=== PATIENT | female | born 1940 | race Caucasian/White ===

== ENCOUNTER 2020-11-15 11:08 | Observation (INO) | payer MEDICARE, OTHER ==
[~2020-11-15] VITALS: Ht 160 cm; Wt 77.1 kg
[~2020-11-15 11:08] MED LIST: OMNICEF 300 MG300 MG PO; PYRIDIUM200 MG PO
[2020-11-15 11:54] LABS: RED BLOOD COUNT 4.83 M/UL (4.00-5.10); WHITE BLOOD COUNT 7.4 K/UL (4.5-11.0)
[2020-11-15 12:11] LABS: BUN/CREATININE RATIO 16 (0-10)
[2020-11-15] MEDS ORDERED: BETAPACE 80MG T80 MG PO (17:08)
[2020-11-15] MEDS ORDERED: AMLODIPINE BESYL5 MG PO (17:09)
[2020-11-15] MEDS ORDERED: ATORVASTATIN CA20 MG PO (17:09)
[2020-11-15] MEDS ORDERED: CLOPIDOGREL75 MG PO (17:09)
[2020-11-15] MEDS ORDERED: ASPIRIN EC81 MG PO (17:10)
[2020-11-15] MEDS ORDERED: COZAAR 50MG TAB50 MG PO (17:10)
[2020-11-15] MEDS ORDERED: OMEPRAZOLE20 MG PO (17:34)
[2020-11-16 02:56] LABS: HEMOGLOBIN 13.3 gm/dl (12.3-15.3); RED BLOOD COUNT 4.6 M/UL (4.00-5.10); WHITE BLOOD COUNT 6.3 K/UL (4.5-11.0)
[2020-11-16] MEDS ORDERED: MECLIZINE HCL25 MG PO (11:18)
[2020-11-16] MEDS ORDERED: ELIQUIS 5 MG TAB5 MG PO (11:28)
== END 2020-11-16 18:18 | disposition home or self-care (01) ==
LOC: ER1 11:08 → CDU 13:18 → M/S 13:18 → EDBD 11-16 18:18 → M/S 11-16 18:18
PROVIDERS: Emergency Medicine; Physician Assistant; ADMIT Internal Medicine
DX: R42 Dizziness and giddiness (principal); I25.10 Atherosclerotic heart disease of native coronary artery without angina pectoris; I48.0 Paroxysmal atrial fibrillation; I44.7 Left bundle-branch block, unspecified; I10 Essential (primary) hypertension; E78.5 Hyperlipidemia, unspecified; F03.90 Unspecified dementia, unspecified severity, without behavioral disturbance, psychotic disturbance, mood disturbance, and anxiety; Z95.5 Presence of coronary angioplasty implant and graft; Z82.49 Family history of ischemic heart disease and other diseases of the circulatory system; Z83.3 Family history of diabetes mellitus; Z20.822 Contact with and (suspected) exposure to COVID-19; Z88.0 Allergy status to penicillin; Z88.2 Allergy status to sulfonamides; Z91.013 Allergy to seafood; Z79.82 Long term (current) use of aspirin; Z79.02 Long term (current) use of antithrombotics/antiplatelets
CPT/HCPCS: ECHO; 36415; 70450; 70551; 71045; 80048; 80053; 82550; 82553; 83874; 84484; 85025; 85610; 85730; 93005; 93306; 93880; 97161; 99285; G0378; J7030; U0002

== ENCOUNTER 2020-12-11 20:42 | Inpatient (IN) | payer MEDICARE, OTHER ==
[~2020-12-11] VITALS: Ht 160 cm; Wt 81.2 kg
[~2020-12-11 20:42] MED LIST changes: +AMLODIPINE BESYL5 MG PO; +ASPIRIN EC81 MG PO; +ATORVASTATIN CA20 MG PO; +BETAPACE 80MG T80 MG PO; +CLOPIDOGREL75 MG PO; +COZAAR 50MG TAB50 MG PO; +ELIQUIS 5 MG TAB5 MG PO; +MECLIZINE HCL25 MG PO; +OMEPRAZOLE20 MG PO
[2020-12-11 21:06] LABS: HEMOGLOBIN 12.7 gm/dl (12.3-15.3); RED BLOOD COUNT 4.41 M/UL (4.00-5.10); WHITE BLOOD COUNT 7.6 K/UL (4.5-11.0)
[2020-12-11 21:40] LABS: BUN/CREATININE RATIO 18 (0-10)
--- NOTE | 2020-12-13 12:46 | NUR ---
CALLED MRI LEFT MESSAGE THAT PATIENT IS NOT ON TELEMETRY AND IS READY FOR MRI.
[2020-12-14 03:27] LABS: HEMOGLOBIN 11.9 gm/dl (12.3-15.3); RED BLOOD COUNT 4.18 M/UL (4.00-5.10); WHITE BLOOD COUNT 8.8 K/UL (4.5-11.0)
--- NOTE | 2020-12-15 13:48 | NUR ---
1304- patient left for medical lab technologist at this time
[2020-12-16 03:41] LABS: HEMOGLOBIN 12.2 gm/dl (12.3-15.3); RED BLOOD COUNT 4.27 M/UL (4.00-5.10)
[2020-12-16 04:15] LABS: BUN/CREATININE RATIO 22 (0-10)
--- NOTE | 2020-12-16 12:05 | NUR ---
SPOKE WITH CHERRI MONK REALTED TO PATIENT REFUSING CT SCAN OF ABD. PATIENT STATES ALLERGIC TO IODINE. ORDER TO CANCEL ORDER AND FOLLOW UP AT CLINIC.
--- NOTE | 2020-12-16 14:52 | NUR ---
1330- HOSPITALIST NOTIFIED OF STEVENTENT REFUSES FOR CT SCAN. NO NEW ORDERS.
[2020-12-18 05:09] LABS: HEMOGLOBIN 11.9 gm/dl (12.3-15.3); RED BLOOD COUNT 4.17 M/UL (4.00-5.10); WHITE BLOOD COUNT 6.8 K/UL (4.5-11.0)
[2020-12-18 05:31] LABS: BUN/CREATININE RATIO 28 (0-10)
[2020-12-20] MEDS ORDERED: POLYETHYLENE GL17 GM PO (10:38)
[2020-12-20] MEDS ORDERED: HYDROCODON-ACE1 EAC4 PO (10:38)
[2020-12-20] MEDS ORDERED: DOCUSATE SODIU100 MG PO (10:38)
[2020-12-20] MEDS ORDERED: ZOFRAN4 MG PO (11:58)
== END 2020-12-20 14:20 | disposition home or self-care (01) | DRG 552 ==
LOC: ER1 20:42 → M/S 23:15 → CDU 23:15 → M/S 23:15 → EDBD 12-20 14:20
PROVIDERS: Internal Medicine; Physician Assistant; ADMIT Internal Medicine
DX: S32.019A Unspecified fracture of first lumbar vertebra, initial encounter for closed fracture (principal); S32.19XA Other fracture of sacrum, initial encounter for closed fracture; N30.00 Acute cystitis without hematuria; S32.592A Other specified fracture of left pubis, initial encounter for closed fracture; I10 Essential (primary) hypertension; E78.5 Hyperlipidemia, unspecified; R26.9 Unspecified abnormalities of gait and mobility; Z20.822 Contact with and (suspected) exposure to COVID-19; I25.10 Atherosclerotic heart disease of native coronary artery without angina pectoris; I48.0 Paroxysmal atrial fibrillation; D64.9 Anemia, unspecified; W18.30XA Fall on same level, unspecified, initial encounter; I44.7 Left bundle-branch block, unspecified; K59.00 Constipation, unspecified; N28.1 Cyst of kidney, acquired; Z79.01 Long term (current) use of anticoagulants; Z98.51 Tubal ligation status; Z95.5 Presence of coronary angioplasty implant and graft; Z88.0 Allergy status to penicillin; Z88.2 Allergy status to sulfonamides; Z83.3 Family history of diabetes mellitus; Z82.49 Family history of ischemic heart disease and other diseases of the circulatory system; Z80.9 Family history of malignant neoplasm, unspecified
CPT/HCPCS: 36415; 70450; 71045; 72125; 72131; 72148; 72192; 72195; 73502; 80048; 80053; 81001; 82550; 82553; 83874; 84484; 85025; 93005; 94760; 96372; 96374; 96375; 96376; 97110-GP-CQ; 97162; 97530; 97530-GP-CQ; 99285; G0378; J1650; J1956; J2270; J2405; Q9967; U0002

== ENCOUNTER → 2021-01-25 | Outpatient (CLI) | payer MEDICARE, OTHER ==
[~2021-01-25] MED LIST changes: +DOCUSATE SODIU100 MG PO; +HYDROCODON-ACE1 EAC4 PO; +POLYETHYLENE GL17 GM PO; +ZOFRAN4 MG PO
== END ==
LOC: EXRD 15:00 → EDBD 15:13
DX: M81.0 Age-related osteoporosis without current pathological fracture (principal); S22.000A Wedge compression fracture of unspecified thoracic vertebra, initial encounter for closed fracture
CPT/HCPCS: 77080

== ENCOUNTER → 2021-03-03 | Outpatient (CLI) | payer MEDICARE, OTHER | LOC: MRI 02-28 14:00 | DX: N28.89 Other specified disorders of kidney and ureter (principal); N28.1 Cyst of kidney, acquired; R93.421 Abnormal radiologic findings on diagnostic imaging of right kidney | CPT/HCPCS: 36415; 74183; 82565; A9577 ==